=== PATIENT | female | born 1970 | race Caucasian/White ===

== ENCOUNTER 2017-10-04 07:49 | Day surgery (SDC) | payer OTHER ==
[~2017-10-04 07:49] MED LIST: Lactated Ringers 1,000 ML IV SCH; ceFAZolin 2 GM in Premix Bag 1 BAG IV ONE
[2017-10-04] MEDS ORDERED: Levofloxacin/Dextrose 5%-Water 500 MG in Premix Bag 1 BAG IV ONE (09:05)
[2017-10-04] MEDS ORDERED: fentaNYL 100 MCG/2 ML SDV IV ONE (09:30)
[2017-10-04] MEDS ORDERED: HYDROmorphone 2 MG/ML SDV IV ONE (09:30)
[2017-10-04] MEDS ORDERED: Dexamethasone 4 MG/ML 5 ML MDV IVPUSH ONE (09:30)
[2017-10-04] MEDS ORDERED: Propofol 200 MG/20 ML SDV IV ONE (09:30)
[2017-10-04] MEDS ORDERED: Sugammadex Sodium 200 MG/2 ML VIAL IV ONE (09:30)
[2017-10-04] MEDS ORDERED: Lactated Ringers 1,000 ML IV ONE (09:30)
[2017-10-04] MEDS ORDERED: Succinylcholine 200 MG/10 ML MDV IV ONE (09:30)
[2017-10-04] MEDS ORDERED: diphenhydrAMINE 50 MG/ML SDV IV ONE (09:30)
[2017-10-04] MEDS ORDERED: Ketorolac 30 MG/ML SDV IVPUSH ONE (09:30)
[2017-10-04] MEDS ORDERED: Rocuronium 100 MG/10 ML MDV IV ONE (09:30)
[2017-10-04] MEDS ORDERED: Ondansetron 4 MG/2 ML SDV IVPUSH ONE (09:30)
[2017-10-04] MEDS ORDERED: Midazolam 1 MG/ML 2 ML SDV IV ONE (09:30)
--- NOTE | 2017-10-04 09:42 | PCM.PN ---
- General Info Date of Service: 10/04/17 - Review of Systems Systems Review Comment:: 47 y/o female with known hernia in RUQ here for lap repair. Procedure again discussed with patient. Questions answered and she agrees to proceed. there has been no significant change to her health status since her recent exam. - Patient Data Vitals - Most Recent: Last Vital Signs Temp 98.0 F 10/04/17 08:41 Pulse 87 10/04/17 08:41 Resp 16 10/04/17 08:41 BP 122/82 10/04/17 08:41 Pulse Ox 97 10/04/17 08:41 Weight - Most Recent: 179 lb Med Orders - Current: Current Medications Lactated Ringer's (Ringers, Lactated) 1,000 mls @ 125 mls/hr IV ASDIRECTED [facility] Last Admin: 10/04/17 09:15 Dose: 125 mls/hr Levofloxacin/Dextrose 500 mg/ (Premix) 100 mls @ 100 mls/hr IV ONETIME ONE Stop: 10/04/17 10:04 Last Admin: 10/04/17 09:21 Dose: 100 mls/hr Discontinued Medications Cefazolin Sodium/Dextrose 2 gm (/ Premix) 50 mls @ 100 mls/hr IV ONETIME ONE Stop: 10/04/17 07:59 Last Admin: 10/04/17 09:18 Dose: Not Given - Problem List Review Problem List Initiated/Reviewed/Updated: Yes - My Orders Last 24 Hours: My Active Orders 10/03/17 Dinner Nothing Per Oral Diet [DIET] 10/04/17 07:30 Patient Status [ADT] Routine Patient to Empty Bladder [RC] ASDIRECTED Verify Patient Consent Obtain [RC] ASDIRECTED HCG QUALITATIVE,URINE [URCHEM] Routine Lactated Ringers [Ringers, Lactated] 1,000 ml IV ASDIRECTED Peripheral IV Insertion Adult [OM.PC] Routine Sequential Compression Device [OM.PC] Routine 10/04/17 09:05 Levofloxacin/Dextrose 5%-Water [Levaquin in D5W 500 MG/100 ML] 500 mg Premix Bag 1 bag IV ONETIME - Assessment Assessment:: Ventral hernia - Plan Plan:: Lap ventral hernia repair
[2017-10-04] MEDS ORDERED: Bupivacaine 0.5%/EPINEPHrine 1:200,000 50 ML MDV INJECT ONE (09:49)
--- NOTE | 2017-10-04 11:12 | PCM.OPNOTE ---
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
[2017-10-04] MEDS ORDERED: Acetaminophen/HYDROcodone 325-5 MG Tab PO PRN (12:26)
--- NOTE | 2017-10-04 13:16 | OR ---
DATE OF OPERATION: 10/04/2017 SURGEON: Ant Hagen MD REFERRING PROVIDER: Kizzy Recinos MD PREOPERATIVE DIAGNOSIS: Ventral incisional hernia. POSTOPERATIVE DIAGNOSIS: Ventral incisional hernia. OPERATION PERFORMED: Laparoscopic repair of ventral incisional hernia. INDICATIONS FOR SURGERY: This 47-year-old female has developed abdominal pain and was noted on recent CT scan to have a hernia in the right upper quadrant of her abdominal wall. This is the area where she has had a previous cholecystectomy through a subcostal incision. FINDINGS: In the right upper quadrant in the area of her subcostal incision, the patient has a hernia approximately 2 x 1.5 inches in size along with some attenuation of the adjacent fascia. The patient has a large amount of fatty tissue adherent up to the anterior abdominal wall in this area obscuring the hernia, but there were no bowel involvement and no vascular compromise in the tissue. The remainder of the abdominal cavity appears unremarkable with no other significant adhesions noted. PROCEDURE IN DETAIL: The patient was taken to the operating room. She was given general endotracheal anesthesia and the abdomen was sterilely prepped and draped. A left subcostal incision was made and through this the abdominal cavity was entered under direct visualization using a Visiport catheter. Pneumoperitoneum to 15 mmHg was achieved with carbon dioxide. 5 mm trocars were placed in the right and left lower abdomen. All trocar sites were infiltrated with Marcaine prior to incision. Careful and persistent dissection was then used to free the fatty tissue from the anterior abdominal wall in the area of the right upper quadrant hernia. This along with some dissection of the falciform ligament allowed complete exposure of the hernia in the surrounding fascia. A 4 x 6 inch oval of composite mesh was then selected, soaked in antibiotic and then placed intraabdominally. It was positioned using 3 access sutures which were passed through the abdominal wall over the hernia defect with good purchase of tissue surrounding all aspects of the hernia. The mesh was then secured to the anterior abdominal wall with multiple absorbable tacks an outer row of closely spaced tacks were placed along with an inner row of more widely tacks securing the mesh to the anterior abdominal wall and covering the hernia defect with good margin around the defect circumferentially. No evidence of complication was noted. Inspection showed no sign of bleeding and then the fascial defect of the left upper quadrant was closed with 0 Vicryl using a port closure device and the pneumoperitoneum was evacuated and the trocars were removed under direct visualization. Skin incisions were irrigated and then closed with interrupted 4-0 Vicryl subcuticular stitch for skin. Sterile dressings were placed. The patient was awakened, extubated, and taken from the operating room in satisfactory condition. ESTIMATED BLOOD LOSS: 10 mL. COMPLICATIONS: None. PROGNOSIS: Good. /[id number] JAYCEE/HELGA ARCEO
== END 2017-10-04 14:20 | disposition home or self-care (01) ==
LOC: FB.SDS 07:49
PROVIDERS: ATTEND Surgery
DX: K43.2 Incisional hernia without obstruction or gangrene (principal); Z79.899 Other long term (current) drug therapy
CPT/HCPCS: A9270-GY; C1781; C9399; J0330; J1100; J1170; J1200; J1885; J1956; J2250; J2405; J2704; J3010; J7120